=== PATIENT | female | born 1955 | race Caucasian/White ===

== ENCOUNTER 2016-12-21 05:32 | Day surgery (SDC) | payer OTHER ==
[~2016-12-21 05:32] MED LIST: HYDROCHLOROTHIA25 M1 PO; PRILOSEC OTC20 M1 PO; ZINC LOZENGES1 EACH PO
== END 2016-12-21 11:15 ==
LOC: SRG 05:32 → SHSB 05:33 → ORW 07:25 → PACU 08:49 → SHSB 09:10
PROC: 0FT44ZZ Resection of Gallbladder, Percutaneous Endoscopic Approach (ICD-10-PCS; principal; 2016-12-21)
DX: K81.1 Chronic cholecystitis (principal); K66.0 Peritoneal adhesions (postprocedural) (postinfection); I10 Essential (primary) hypertension; M19.90 Unspecified osteoarthritis, unspecified site; K21.9 Gastro-esophageal reflux disease without esophagitis; Z79.899 Other long term (current) drug therapy; Z87.891 Personal history of nicotine dependence; Z90.89 Acquired absence of other organs; Z96.653 Presence of artificial knee joint, bilateral; Z98.890 Other specified postprocedural states
CPT/HCPCS: J0690; J7030